=== PATIENT | female | born 1965 | race Caucasian/White ===

== ENCOUNTER 2018-10-09 09:25 | Emergency (ER) | payer OTHER ==
[~2018-10-09] VITALS: Ht 152.4 cm; Wt 64.4 kg
[2018-10-09 09:28] VITALS: BP 192/116
--- NOTE | 2018-10-09 09:33 | NUR ---
53 y female bib self c/o painful urination since yesterday and today woke up with left flank pain. pain 8/10 aching. normal voiding pattern, continent. urine is clear and yellow. -n/v. bed is down, locked, bed rail x 1, ermd notified. hx HTN
--- NOTE | 2018-10-09 09:50 | NUR ---
dr evaluating at bedside
[2018-10-09] MEDS ORDERED: NACL 0.9% 1,000 ML IV ONE (09:55)
--- NOTE | 2018-10-09 10:03 | NUR ---
LAB AT BEDSIDE
[2018-10-09] MEDS ORDERED: cefTRIAXone 1,000 MG VIAL ONE (10:07)
[2018-10-09 10:09] LABS: BASOPHILS # (AUTO) 0.1 K/uL (0.00-0.22); BASOPHILS % (AUTO) 0.5 % (0.0-2.0); EOSINOPHILS # (AUTO) 0.1 K/uL (0-0.4); EOSINOPHILS % (AUTO) 0.6 % (0.0-4.0); HEMATOCRIT 40.8 % (36-48); HEMOGLOBIN 13.6 g/dL (12.0-16.0); LYMPHOCYTES # (AUTO) 1.8 K/uL (2.5-16.5); LYMPHOCYTES % (AUTO) 13.7 % (20.5-51.1); MEAN CORPUSCULAR HEMOGLOBIN 28 pg (27-31); MEAN CORPUSCULAR HGB CONC 33 g/dL (33-37); MEAN CORPUSCULAR VOLUME 83.3 fL (80-94); MONOCYTES % (AUTO) 7.7 % (1.7-9.3); NEUTROPHILS # (AUTO) 10.2 K/uL (1.8-7.7); NEUTROPHILS % (AUTO) 77.5 % (42.2-75.2); PLATELET COUNT (AUTO) 246 K/uL (140-450); RED CELL DISTRIBUTION WIDTH 14.8 % (11.6-13.7); WHITE BLOOD COUNT (AUTO) 13.1 K/uL (4.8-10.8)
[2018-10-09 10:17] LABS: APPEARANCE,URINE SLIGHTLY HAZY (CLEAR); BLOOD, URINE 3+ (NEGATIVE); COLOR,URINE YELLOW (YELLOW); UGLUCOSE NEGATIVE (NEGATIVE)
[2018-10-09 10:18] LABS: BILIRUBIN,URINE NEGATIVE (NEGATIVE); LEUKOCYTE ESTERASE ,URINE 2+ (NEGATIVE); NITRITE, URINE POSITIVE (NEGATIVE)
[2018-10-09 10:20] LABS: RBC,URINE 50-80 /HPF (0-5)
[2018-10-09 10:21] LABS: WBC,URINE 80-100 /HPF (0-5)
[2018-10-09 10:24] LABS: ANION GAP 9.7 (8-16); CARBON DIOXIDE 28.8 mmol/L (21-32); POTASSIUM 3.5 mmol/L (3.5-5.1)
[2018-10-09 10:25] LABS: CREATININE 0.6 mg/dL (0.6-1.3); TOTAL BILIRUBIN 0.7 mg/dL (0.0-1.0)
[2018-10-09 10:40] LABS: ALBUMIN 3.5 g/dL (3.4-5.0)
--- NOTE | 2018-10-09 11:30 | NUR ---
pt [id number]. vss at this time. bedside
[2018-10-09] MEDS ORDERED: KETOROLAC 15 MG/ML VIAL IVP ONE (11:50)
[2018-10-09 12:30] VITALS: BP 185/102
--- NOTE | 2018-10-09 12:30 | NUR ---
Patient discharged with v/s stable. Written and verbal after care instructions given and explained. Patient alert, oriented and verbalized understanding of instructions. Ambulatory with steady gait. All questions addressed prior to discharge. ID band removed. Patient advised to follow up with PMD. Rx of ibuprofen, ciprofloxacin hydrochloride given. Patient educated on indication of medication including possible reaction and side effects. Opportunity to ask questions provided and answered.
--- NOTE | 2018-10-11 15:56 | NUR ---
CALL PHONE NUMBER [phone] UNABLE TO LEAVE VOICE MESSAGE DUE TO MAILBOX IS FULL. RN WILL CALL BACK.
--- NOTE | 2018-10-11 17:20 | NUR ---
CALL PHONE NUMBER [phone] UNABLE TO LEAVE VOICE MESSAGE DUE TO MAILBOX IS FULL. RN WILL CALL BACK.
--- NOTE | 2018-10-12 08:07 | NUR ---
ADDENDUM: CALLED ,VOICE MAIL FULL.CAN NOT LEAVE MESSAGE. WILL ATTEMPT TO CALL AGAIN FOR NEW PRESCRIPTION
--- NOTE | 2018-10-12 15:11 | NUR ---
ADDENDUM: CALLED IN PRESCRIPTION TO [facility] MACROBID [id number] MG. PO BID #[id number] TABS.
--- NOTE | 2018-10-12 15:26 | NUR ---
ADDENDUM: SPOKE TO PATIENTS FAMILY MEMBER TO STOP TAKING CIPROFLOXACIN AND START TAKING NEW PRESCRIPTION WITH UNDERSTANDING
== END 2018-10-09 12:30 | disposition home or self-care (01) ==
LOC: EDUNIT# 09:25 → MED 09:25
DX: N12 Tubulo-interstitial nephritis, not specified as acute or chronic (principal); I10 Essential (primary) hypertension
CPT/HCPCS: 36415; 80053; 81001; 81025; 85025; 87086; 87186; 96365; 96375; 99283; J0696; J1885; J7030